=== PATIENT | female | born 1990 | race Caucasian/White ===

== ENCOUNTER 2017-05-16 07:50 | Inpatient (IN) | payer MEDICAID, OTHER ==
[2017-05-16 08:34] VITALS: BMI 30.2
[2017-05-16] MEDS ORDERED: ceFAZolin IV 2 gm in Dextrose 2 GM/50 ML BAG IVPB ONE (08:34)
[2017-05-16] MEDS: Lactated Ringer's 1,000 ML IV SCH ×4 (08:45→23:00)
[2017-05-16] MEDS ORDERED: Oxytocin 30 units/LR 500ML 30 U/500 ML BAG IV SCH (08:45)
[2017-05-16 08:58] LABS: BASO % 0.2 % (0.0-2.0); EOS # 0.1 K/uL (0.0-0.7); EOS % 0.8 % (0.0-4.0); LYMPH # 1.7 K/uL (1.0-4.3); LYMPH % 13.7 % (20.0-40.0); MEAN CELL VOLUME 83.6 fl (81.0-99.0); MEAN CORPUSCULAR HEMOGLOBIN 27.8 pg (27.0-31.0); MEAN CORPUSCULAR HGB CONC 33.3 g/dL (33.0-37.0); MONO % 7.8 % (0.0-10.0); NEUT # 9.7 K/uL (1.8-7.0); NEUT % 77.5 % (50.0-75.0); NRBC % 0.1 % (0.0-0.0); PLATELET COUNT 219 K/uL (130-400); RBC 4.32 Mil/uL (3.80-5.20); RED CELL DISTRIBUTION WIDTH 16.2 % (11.5-14.5); WHITE BLOOD COUNT 12.5 K/uL (4.8-10.8)
[2017-05-16 09:53] LABS: BANDS 2 % (0-2); BASOPHIL 1 % (0-2); EOSINOPHIL 2 % (0-7); LYMPHOCYTE 14 % (20-50); MONOCYTE 7 % (0-10); MYELOCYTE 2 % (0-0); NEUTROPHIL 71 % (42-75); PLATELET ESTIMATE NORMAL (NORMAL); REACTIVE LYMPHOCYTES 1 % (0-0); TOTAL CELLS COUNTED 100
[2017-05-16 09:55] LABS: ANISOCYTOSIS SLIGHT; OVALOCYTES SLIGHT; POIKILOCYTOSIS SLIGHT; TEARDROP CELLS SLIGHT
[2017-05-16 09:56] LABS: LARGE PLATELETS PRESENT; SPHEROCYTES SLIGHT
[2017-05-16] MEDS ORDERED: ePHEDrine 50 mg/ml Inj ONE ×2 (13:34→14:26)
[2017-05-16] MEDS ORDERED: Morphine 1 mg/ml preservative-free Inj(Duramorph) ONE (13:34)
--- NOTE | 2017-05-16 13:50 | OBDS ---
MATERNAL INFORMATION Provider Comments: See operative report LABOR SUMMARY No. Babies in Womb: 1 LABOR INFORMATION Group B Beta Strep: Negative
--- NOTE | 2017-05-16 13:50 | OBHP ---
Datetime: 05/16/2017 13:44 IP Adm Impression: Term, intrauterine ; No Active Labor IP Admit Plan: Admit to unit Admit Comment, IP Provider: Patient presents to labor and delivery for elective repeat sect ion. The patient reports good movement no vaginal bleeding or leakage of fluid. Past medical history none Past surgical history previous delivery No known drug allergies Medications vitamins Social history denies alcohol tobacco use Review of systems patient denies any chest pain shortness of breath palpitations nausea vomiting d iarrhea dysuria heat or cold intolerance is bruisability musculoskeletal or neurological complaints Vital signs stable afebrile Physical exam see notes Intrauterine at 39 weeks for elective repeat section Admit, IV fluid hydration informed consent obtained We discussed risks benefits and alternatives to an operative delivery and patient agreed with plan of care Pelvic Type - PN: Adequate Extremities - PN: Normal Abdomen - PN: Normal Back - PN: Normal Breast - PN: Normal Lungs - PN: Normal Heart - PN: Normal Thyroid - PN: Normal Neurologic - PN: Normal HEENT - PN: Normal General - PN: Normal FHR - Baseline A Provider: 145 Gestation - Est Wks by US: 39.0 Vital Signs Provider: Reviewed IP Chief Complaint: Scheduled Section NICHD Variability Prov Fetus A: Moderate 6-25bpm FHR Category Provider Fetus A: Category I NICHD Decel Fetus A IP Provider: None Genitourinary Exam: Normal DTRs - PN: Normal
[2017-05-16] MEDS ORDERED: DiphenhydrAMINE 50 mg/ml Inj IVP PRN (15:12)
--- NOTE | 2017-05-16 17:10 | OP ---
PROCEDURE DATE: 05/16/2017 PREOPERATIVE DIAGNOSES: Previous section, declined trial of labor. POSTOPERATIVE DIAGNOSES: Previous section, declined trial of labor. OPERATION PERFORMED: Repeat low flap transverse section via Pfannenstiel skin incision. SURGEON: Lynda Downey MD HOT KETTLE TENDER: Ruben Molina DO. He was instrumental in the care of the patient, he helped to create exposure, he was helpful in obtaining hemostasis and delivery of the infant, closure of the patient. The procedure would not have been possible without his assistance. TYPE OF ANESTHESIA: Spinal. ANESTHESIA ADMINISTERED BY: Milena Wylie MD ESTIMATED BLOOD LOSS: 800 mL. URINE OUTPUT: Nava catheter put out approximately 150 mL of clear urine. FLUIDS: The patient received approximately 1500 mL of D5 LR intraoperatively. OPERATIVE FINDINGS: Female infant, vertex presentation, weighing 3755 grams. Apgars were 9 and 9. Normal uterus, tubes, and ovaries were identified. DESCRIPTION OF PROCEDURE: After informed consent was obtained, the patient was taken to the operating room where she was given spinal anesthesia. She was then prepped and draped in normal sterile fashion with a leftward tilt. A Pfannenstiel skin incision was then made with a scalpel and carried down to the underlying layer of fascia. The fascia was nicked in the midline. The fascial incision was then extended laterally with the Bovie. The inferior aspect of the fascial incision was then grasped with Jim clamps, elevated up and the rectus muscles were dissected off using both sharp and blunt dissection. Attention was then turned to the superior aspect of the fascial incision, which in similar fashion was grasped with Jim clamps, elevated up, and the rectus muscles were dissected off using both sharp and blunt dissection. The rectus muscles were then in the midline. The peritoneum was identified and entered sharply with the Metzenbaum scissors. The peritoneal incision was then extended superiorly and inferiorly with good visualization of the bladder. The bladder blade was inserted. The vesicouterine peritoneum was identified, grasped with smooth pickups and then entered sharply with the Metzenbaum scissors. The incision was then extended laterally. The bladder flap was created digitally. The bladder blade was then re-adjusted and a low transverse incision was made with a scalpel. The incision was then extended laterally. The infant's head was delivered atraumatically. The nose and mouth were suctioned with DeLee suction trap. The cord was clamped and cut. The infant was handed off to waiting pediatricians. Placenta was then removed manually. The uterus was exteriorized and cleared off all clots and debris. The uterine incision was repaired with 0-Vicryl in a running locking fashion. The abdomen was then copiously irrigated. The irrigant was removed with a suction device. The gutters were then cleared of all clots and debris. The uterus was returned to the abdomen. The incision site was inspected. Hemostasis was noted. The peritoneum was then closed with 2-0 Vicryl in a running fashion. The muscle was reapproximated with 0-Vicryl in an interrupted fashion. The fascia was closed with 0-Vicryl in a running fashion. The skin was closed with 4-0 on a Marco A needle. All sponge, lap, needle, and instrument counts were correct x2 and the patient was taken to the recovery room in awake and stable condition. Lynda Downey MD МАРИНА
[2017-05-16] MEDS: Simethicone 80 mg Chewtab PO SCH ×2 (17:59→22:35)
[2017-05-17] MEDS: Simethicone 80 mg Chewtab PO SCH ×4 (05:02→21:19)
[2017-05-17] MEDS: Oxycodone/Acetaminophen 5/325 mg Tab PO PRN ×3 (06:14→21:56)
[2017-05-17 06:40] LABS: BASO # 0.1 K/uL (0.0-0.2); BASO % 0.4 % (0.0-2.0); EOS % 0.1 % (0.0-4.0); HEMOGLOBIN 10.6 g/dL (12.0-16.0); LYMPH % 7.8 % (20.0-40.0); MEAN CELL VOLUME 84.9 fl (81.0-99.0); MEAN CORPUSCULAR HEMOGLOBIN 27.6 pg (27.0-31.0); MEAN CORPUSCULAR HGB CONC 32.5 g/dL (33.0-37.0); MEAN PLATELET VOLUME 9.4 fl (7.2-11.7); MONO # 0.9 K/uL (0.0-0.8); MONO % 6.5 % (0.0-10.0); NEUT # 11.4 K/uL (1.8-7.0); NEUT % 85.2 % (50.0-75.0); NRBC % 0.1 % (0.0-0.0); RBC 3.83 Mil/uL (3.80-5.20); RED CELL DISTRIBUTION WIDTH 15.7 % (11.5-14.5); WHITE BLOOD COUNT 13.4 K/uL (4.8-10.8)
--- NOTE | 2017-05-17 08:23 | OBPPN ---
Datetime: 05/17/2017 08:20 PP Pain Prov: Within normal limits PP Nausea Prov: Denies PP Flatus Prov: Yes PP Breasts Prov: Not Done PP Heart Prov: Normal PP Lungs Prov: Normal PP Abdomen/Uterus Prov: Normal PP Lochia Prov: Not Done PP Vulva/Perineum Prov: Not Done PP CVA Tenderness Prov: Normal PP Extremities Prov: Normal PP C/S Incision Prov: Normal PP Impression Prov: Normal progression; Induced Hypertension PP Progress Note Prov: Patient doing well pain well controlled tolerating diet and ambulating withou t difficulty Vital signs stable afebrile Uterus firm below the umbilicus Incision clean dry and intact Extremities no Homans Postoperative day #1 DC IV fluids, Nava catheter Analgesia as needed Encourage ambulation and advance diet as tolerated Vital Signs Provider PP: Reviewed
[2017-05-17] MEDS: Multivitamin With Minerals Tab PO SCH (09:16)
[2017-05-18] MEDS: Simethicone 80 mg Chewtab PO SCH ×4 (04:54→21:25)
[2017-05-18] MEDS: Multivitamin With Minerals Tab PO SCH (09:39)
[2017-05-18] MEDS ORDERED: Bisacodyl 5mg EC Tab PO PRN (14:51)
[2017-05-19] MEDS: Oxycodone/Acetaminophen 5/325 mg Tab PO PRN ×2 (00:55→06:17)
[2017-05-19] MEDS: Simethicone 80 mg Chewtab PO SCH (03:46)
[2017-05-19] MEDS ORDERED: DiphenhydrAMINE 50 mg/ml Inj IVP PRN (06:28)
[2017-05-19] MEDS ORDERED: Oxycodone/Acetaminophen 5/325 mg Tab PO PRN (06:28)
[2017-05-19] MEDS ORDERED: Bisacodyl 5mg EC Tab PO PRN (06:28)
[2017-05-19] MEDS ORDERED: Multivitamin With Minerals Tab PO SCH (09:00)
[2017-05-19] MEDS ORDERED: Simethicone 80 mg Chewtab PO SCH (10:00)
--- NOTE | 2017-05-19 10:14 | OBPPN ---
Datetime: 05/19/2017 10:10 PP Pain Prov: Within normal limits PP Nausea Prov: Denies PP Flatus Prov: Yes PP BM Prov: No PP Breasts Prov: Normal PP Heart Prov: Normal PP Lungs Prov: Normal PP Abdomen/Uterus Prov: Normal PP Lochia Prov: Normal PP Vulva/Perineum Prov: Normal PP Extremities Prov: Normal PP C/S Incision Prov: Normal PP Progress Prov: Normal PP Impression Prov: Normal progression PP Plan Prov: Discharge PP Progress Note Prov: s: no c/o. pain well controlled. tolerating reg diet o: pfannens incision: c/d/i fundus 2cm belw; firm, nt i: pod3 cd doing well p: d/c home f/u 10 days for incison check continue pnv rx senokot s, feso4, _ percocet. IP PP Procedures: None Datetime: 05/17/2017 08:20 PP Comments Phys Exam Prov: abd dressing: c/d no blood
--- NOTE | 2017-05-19 10:14 | OBDCSUM ---
Datetime: 05/19/2017 10:12 Discharged to, Provider: Home Follow up at, Provider: dr nelson Disch Instr Activity: May Shower Disch Instr Diet: Regular Discharge Instructions, Provider: Routine instructions given Discharge Diagnosis, Provider: Term Delivered Follow up in weeks, Provider: 10-11days Discharge Instruct Comment, Prov: postop _pp instrucitons Disch Activity Restrictions: No exercising; No lifting; No driving; No sexual activity; Nothing in v agina - [place], tampons, douche Discharge Comment, Provider: i: pod3 cd doing well p: d/c home f/u 10 days for incison check continue pnv rx senokot s, feso4, _ percocet. Contraception after Delivery: Undecided
[2017-05-19 18:50] VITALS: BP 118/66; PULSE 72; RESP 18; TEMP 98; O2SAT 98
== END 2017-05-19 13:43 | disposition home or self-care (01) | DRG 371 ==
LOC: H.L&D 08:34 → H.OB/GYN 18:30
PROVIDERS: ADMIT Obstetrics & Gynecology Gynecology; ATTEND Obstetrics & Gynecology Gynecology
PROC: 10D00Z1 Extraction of Products of Conception, Low, Open Approach (ICD-10-PCS; principal; 2017-05-16)
PROC: 4A1HXCZ Monitoring of Products of Conception, Cardiac Rate, External Approach (ICD-10-PCS; 2017-05-16)
DX: O34.211 Maternal care for low transverse scar from previous cesarean delivery (principal); N85.8 Other specified noninflammatory disorders of uterus; Z37.0 Single live birth; Z3A.39 39 weeks gestation of pregnancy